=== PATIENT | male | born 1930 | race Caucasian/White ===

== ENCOUNTER 2016-06-26 23:19 | Emergency (ER) | payer OTHER, MEDICARE ==
[2016-06-26 23:23] VITALS: BP 197/83
[2016-06-26] MEDS ORDERED: Lidocaine 2% with EPINEPHrine 1:100,000 20 ML MDV INJECT ONE (23:33)
--- NOTE | 2016-06-27 00:03 | EDM.PDOC ---
ED HPI Skin/Rash - General Chief Complaint: Laceration Stated Complaint: laceration Time Seen by Provider: 06/26/16 23:33 Source: Reports: Patient History Limitations: Reports: No limitations - History of Present Illness INITIAL COMMENTS - FREE TEXT/NARRATIVE: Patient was at home using the bathroom and tripped over an area rug. He did not lose consciousness, but did hit his head on a corner in the bathroom. He has no complaints of headache, blurry vision, altered mental status, or unilateral weakness. Pressure was applied at home and is currently applied. No pain. Symptom Onset Date: 06/26/16 Symptom Onset Time: 23:25 Timing: Reports: still present Location, Skin: Reports: head (left frontal scalp) Severity: mild Known Identified Source: yes Place of Occurrence: home Sick Contact: no Associated Symptoms: Reports: no other symptoms Similar Symptoms Previously: no Recent Medical Care: no - Related Data Allergies Allergy/AdvReac Type Severity Reaction Status Date / Time No Known Allergies Allergy Verified 06/26/16 23:23 Home Meds: Ambulatory Orders Medication Instructions Recorded Confirmed Doxazosin [Cardura] 4 mg PO DAILY 06/26/16 06/26/16 Furosemide [Furosemide] 1 tab PO DAILY 06/26/16 06/26/16 amLODIPine Besylate [Amlodipine 1 tab PO DAILY 06/26/16 06/26/16 Besylate] cloNIDine HCl [Clonidine HCl] 1 tab PO ASDIRECTED 06/26/16 06/26/16 Past Medical History HEENT History: Reports: Hard of hearing, Impaired vision Cardiovascular History: Reports: Hypertension Oncologic (Cancer) History: Reports: Other (see below) Other Oncologic History: skin - Past Surgical History Musculoskeletal Surgical History: Reports: Knee replacement Social & Family History - Tobacco Use Smoking Status *Q: Former Smoker Used Tobacco, but Quit: Yes Month Tobacco Last Used: ? ED ROS GENERAL - Review of Systems Review Of Systems: ROS reveals no pertinent complaints other than HPI. ED EXAM, SKIN/RASH Exam: See Below Exam Limited By: No limitations General Appearance: alert, WD/WN, no apparent distress Eye Exam: bilateral eye: EOMI, PERRL Head: normocephalic, other (4 cm laceration left frontal scalp) Respiratory/Chest: no respiratory distress Cardiovascular: normal peripheral pulses Neurological: alert, oriented, CN II-XII intact, normal cognition, normal gait, normal reflexes, no motor/sensory deficits Skin: Wound/incision (4 cm linear laceration) Location, Skin: head Characteristics: linear ED SKIN PROCEDURES - Laceration/Wound Repair Left Anterior Medial Head Lac/wound length in cm: 4 Appearance: subcutaneous Distal NVT: neuro & vascular intact Anesthetic type: local Local anesthesia - Lidocaine (Xylocaine): 2% with epi Local anesthetic volume: 3cc Skin prep: chlorhexidine (hibiciens) Exploration/Debridement/Repair: wound explored, in a bloodless field, explored to base, no foreign material found Closed with: zuleika (12 zuleika) Drain placement: No Sterile dressing applied: nurse Tetanus status addressed: No Complications: No Course - Vital Signs Last Recorded V/S: Last Vital Signs Temp 37.3 C 06/26/16 23:19 Pulse 76 06/26/16 23:19 Resp 18 06/26/16 23:19 BP 197/83 H 06/26/16 23:19 Pulse Ox 95 06/26/16 23:19 Departure - Departure Time of Disposition: 00:11 Disposition: Home, Self-Care 01 Condition: good Clinical Impression: Laceration of head without foreign body Instructions: Laceration Care, Adult, [id number], Wound Infection, Easy-to- Read Forms: ED Department Discharge Additional Instructions: You may shower and clean your wound with soap and water. Do not submerge and soak your wound. Review your education for signs and symptoms of infection Have your zuleika removed in 7-10 days If you have any changes in your neurologic status like blurry vision, headache, one sided weakness, altered speech, come back to the emergency room ANA Please call us with any questions or concerns - Problem List & Annotations (1) Laceration of head without foreign body SNOMED Code(s): 007508388 Code(s): S01.91XA - LACERATION W/O FOREIGN BODY OF UNSP PART OF HEAD, INIT Status: Acute Current Visit: Yes Qualifiers: Encounter type: initial encounter Location of open wound of head: scalp Qualified Code(s): S01.01XA - Laceration without foreign body of scalp, initial encounter - Problem List Review Problem List Initiated/Reviewed/Updated: Yes - Assessment/Plan Assessment:: left sided scalp laceration Plan: You may shower and clean your wound with soap and water. Do not submerge and soak your wound. Review your education for signs and symptoms of infection Have your zuleika removed in 7-10 days If you have any changes in your neurologic status like blurry vision, headache, one sided weakness, altered speech, come back to the emergency room ANA Please call us with any questions or concerns
== END 2016-06-27 00:18 | disposition home or self-care (01) ==
LOC: VM.ED 23:19
DX: S01.01XA Laceration without foreign body of scalp, initial encounter (principal); I10 Essential (primary) hypertension; Z88.8 Allergy status to other drugs, medicaments and biological substances; Z87.891 Personal history of nicotine dependence; W22.8XXA Striking against or struck by other objects, initial encounter; Y92.002 Bathroom of unspecified non-institutional (private) residence as the place of occurrence of the external cause
CPT/HCPCS: 12002; 99282-GF-25; 99283

== ENCOUNTER 2018-06-19 12:07 | Inpatient (IN) | payer OTHER, MEDICARE ==
--- NOTE | 2018-06-19 12:17 | EDM.PDOC ---
ED HPI GENERAL MEDICAL PROBLEM - General Chief Complaint: General Stated Complaint: Syncope Time Seen by Provider: 06/19/18 12:07 Source of Information: Reports: Patient, EMS, EMS Notes Reviewed, RN History Limitations: Reports: No Limitations - History of Present Illness INITIAL COMMENTS - FREE TEXT/NARRATIVE: Patient comes in the emergency department by EMS for complaint of a syncopal episode. Patient was at home getting out of shower and needed to have a bowel movement. He became lightheaded and dizzy. His was nearby and came to his assistance and assisted him to the floor prior to him "passing out". She believes he was out for 1-2 minutes. First responders on scene got a blood pressure 83/56 and slowly increased 121/60 prior to arrival at ER. Patient did vomit one time and was given zofran Enroute. Pt denies any symptoms once arriving in the ER. Onset: Sudden Quality: Reports: Other Severity: Moderate Improves with: Reports: None Worsens with: Reports: None Associated Symptoms: Reports: No Other Symptoms - Related Data Allergies Allergy/AdvReac Type Severity Reaction Status Date / Time No Known Allergies Allergy Verified 06/19/18 12:41 Home Meds: Home Meds Doxazosin [Cardura] 8 mg PO DAILY 06/26/16 [History] Furosemide 1 tab PO DAILY 06/26/16 [History] amLODIPine Besylate [Amlodipine Besylate] 1 tab PO DAILY 06/26/16 [History] cloNIDine HCl [Clonidine HCl] 1 tab PO ASDIRECTED 06/26/16 [History] Carbidopa/Levodopa [Carbidopa-Levodopa 25-100 Tab] 1 each PO ASDIRECTED [History] Losartan/Hydrochlorothiazide [Losartan-HCTZ 100-12.5 MG] 1 each PO DAILY [History] Past Medical History HEENT History: Reports: Hard of Hearing, Impaired Vision Cardiovascular History: Reports: Hypertension Oncologic (Cancer) History: Reports: Other (See Below) Other Oncologic History: skin - Past Surgical History Musculoskeletal Surgical History: Reports: Knee Replacement ED ROS GENERAL - Review of Systems Review Of Systems: See Below Constitutional: Reports: No Symptoms HEENT: Reports: No Symptoms Respiratory: Reports: No Symptoms Cardiovascular: Reports: No Symptoms Endocrine: Reports: No Symptoms GI/Abdominal: Reports: No Symptoms : Reports: No Symptoms Musculoskeletal: Reports: No Symptoms Skin: Reports: No Symptoms Neurological: Reports: No Symptoms Psychiatric: Reports: No Symptoms Hematologic/Lymphatic: Reports: No Symptoms Immunologic: Reports: No Symptoms ED EXAM, GENERAL - Physical Exam Exam: See Below Exam Limited By: No Limitations General Appearance: Alert, WD/WN, No Apparent Distress Head: Atraumatic, Normocephalic Respiratory/Chest: No Respiratory Distress, Lungs Clear, Normal Breath Sounds, No Accessory Muscle Use, Chest Non-Tender Cardiovascular: Normal Peripheral Pulses, No Edema, No Murmur, Bradycardia Back Exam: Normal Inspection Extremities: Normal Inspection, Non-Tender, No Pedal Edema, Normal Capillary Refill Neurological: Alert Psychiatric: Normal Affect, Normal Mood Skin Exam: Warm, Dry, Intact Course - Vital Signs Last Recorded V/S: Last Vital Signs Temp 36.1 C 06/19/18 12:07 Pulse 44 L 06/19/18 12:07 Resp 15 06/19/18 12:07 BP 151/52 H 06/19/18 12:07 Pulse Ox 95 06/19/18 12:07 - Orders/Labs/Meds Orders: Active Orders 24 hr Category Date Time Status Cardiac Monitoring [RC] . DIRECTED Care 06/19/18 12:17 Inactive EKG Documentation Completion [RC] STAT Care 06/19/18 12:18 Active Sodium Chloride 0.9% [Normal Saline] 1,000 ml Med 06/19/18 13:31 Active IV ONETIME Sodium Chloride 0.9% [Saline Flush] Med 06/19/18 12:17 Active 10 ml FLUSH ASDIRECTED PRN Peripheral IV Insertion Adult [OM.PC] Stat Oth 06/19/18 12:17 Ordered Medication Orders Sodium Chloride (Normal Saline) 1,000 mls @ 1,000 mls/hr IV ONETIME ONE Stop: 06/19/18 14:30 Sodium Chloride (Saline Flush) 10 ml FLUSH ASDIRECTED PRN PRN Reason: Keep Vein Open Labs: Laboratory Tests 06/19/18 06/19/18 Range/Units 12:36 12:36 WBC 6.9 (4.0-10.0) x10^3/uL RBC 4.00 L (4.5-6.0) x10^6/uL Hgb 12.6 L (14.0-18.0) g/dL Hct 37.3 L (40.0-52.0) % MCV 93.3 H (78.0-93.0) fL MCH 31.5 (26.0-32.0) pg MCHC 33.8 (32.0-36.0) g/dL RDW Coeff of Aj 13.0 (10.0-15.0) % Plt Count 175 (130-400) x10^3/uL Neut % (Auto) 82.1 H (50.0-80.0) % Lymph % (Auto) 8.8 L (25.0-50.0) % [place] % (Auto) 6.4 (2.0-11.0) % Eos % (Auto) 2.6 (0.0-4.0) % Baso % (Auto) 0.1 L (0.2-1.2) % Sodium 136 (136-145) mmol/L Potassium 4.2 (3.5-5.1) mmol/L Chloride 99 (98-107) mmol/L Carbon Dioxide 30 (21-32) mmol/L Anion Gap 11.2 (10-20) mmol/L BUN 38 H (7-18) mg/dL Creatinine 1.9 H (0.70-1.30) mg/dL Est Cr Clr Drug Dosing TNP Estimated GFR (MDRD) 34 Glucose 106 (74-106) mg/dL Calcium 9.2 (8.5-10.1) mg/dL Corrected Calcium 9.76 (8.5-10.1) mg/dL Total Bilirubin 0.5 (0.2-1.0) mg/dL AST 13 L (15-37) U/L ALT 7 L (16-63) U/L Alkaline Phosphatase 58 (46-116) U/L Troponin I < 0.017 (<=0.056) ng/mL NT-Pro-B Natriuret Pep 380 (<=450) pg/mL Total Protein 6.4 (6.4-8.2) g/dL Albumin 3.3 L (3.4-5.0) g/dL Globulin 3.1 Albumin/Globulin Ratio 1.06 Meds: Medications Generic Name Dose Route Start Last Admin Trade Name Freq PRN Reason Stop Dose Admin Sodium Chloride 1,000 mls @ 1,000 mls/hr 06/19/18 13:31 Normal Saline IV 06/19/18 14:30 ONETIME ONE Sodium Chloride 10 ml 06/19/18 12:17 Saline Flush FLUSH ASDIRECTED PRN Keep Vein Open Departure - Departure Time of Disposition: 14:00 Disposition: Admitted As Inpatient 66 Clinical Impression: Bradycardia Syncope Qualifiers: Syncope type: vasovagal syncope Qualified Code(s): R55 - Syncope and collapse - Discharge Information Referrals: Javier Gates MD [Primary Care Provider] - Forms: ED Department Discharge - Problem List Review Problem List Initiated/Reviewed/Updated: Yes - My Orders Last 24 Hours: My Active Orders 06/19/18 12:17 Cardiac Monitoring [RC] . DIRECTED Sodium Chloride 0.9% [Saline Flush] 10 ml FLUSH ASDIRECTED PRN Peripheral IV Insertion Adult [OM.PC] Stat 06/19/18 12:18 EKG Documentation Completion [RC] STAT 06/19/18 13:31 Sodium Chloride 0.9% [Normal Saline] 1,000 ml IV ONETIME - Assessment/Plan Last 24 Hours: My Active Orders 06/19/18 12:17 Cardiac Monitoring [RC] . DIRECTED Sodium Chloride 0.9% [Saline Flush] 10 ml FLUSH ASDIRECTED PRN Peripheral IV Insertion Adult [OM.PC] Stat 06/19/18 12:18 EKG Documentation Completion [RC] STAT 06/19/18 13:31 Sodium Chloride 0.9% [Normal Saline] 1,000 ml IV ONETIME Assessment:: 1. Syncopal episode 2. bradycardia Plan: 1. Labs completed in ER. 2. EKG completed in ER. 3. Fluids given in ER. 4. Patients would not like to be transferred at this time for a consult regarding pacemaker placement. She would like medical management at this time only. 5. Contacted PCP [phone], [phone] called [facility]. PCP is not in clinic today. Did call employee relations director hospitalist Dr. Fields who is willing to admit the pt for further medical management. 6. During ER visit pt remained symptom free however his heart rate did remain 30s-40s. 7. All questions and concerns were addressed prior to admitting.
[2018-06-19 13:11] LABS: CHLORIDE,CL 99 mmol/L (98-107); SODIUM,NA 136 mmol/L (136-145)
[2018-06-19 13:23] LABS: ANION GAP 11.2 mmol/L (10-20)
[2018-06-19] MEDS ORDERED: Sodium Chloride 0.9% 1,000 ML IV ONE (13:31)
[2018-06-19] MEDS: Sodium Chloride 0.9% 10 ML Syringe FLUSH PRN (20:14)
[2018-06-19] MEDS: amLODIPine 5 MG Tab PO SCH (20:17)
[2018-06-19] MEDS: Multivitamins with Iron/Calcium/Folic Acid/Minerals Tab PO SCH (20:17)
[2018-06-19] MEDS: cloNIDine 0.1 MG Tab PO SCH (20:18)
[2018-06-19] MEDS: Carbidopa/Levodopa 50-200 MG Tab.ER PO SCH (20:18)
--- NOTE | 2018-06-19 21:41 | PCM.HP ---
H&P History of Present Illness - General Date of Service: 06/19/18 Admit Problem/Dx: Admission Diagnosis/Problem Admission Diagnosis/Problem Bradycardia with 31-40 beats per minute CC: Syncopal spell HPI: He has been on Sinemet for Parkinsons for about 2-1/2 years, also is on the following for hypertension: Norvasc 5 mg daily, clonidine 0.1 mg BID, Cardura 8 mg daily, losartan 100 mg daily, HCTZ 12.5 mg daily, Lasix 20 mg daily. At his last office visit in 01/18 his BP was down to 120/68 and there was mention of possibly stopping his Lasix and Norvasc in the future. He did fairly well on all of them however. He was brought to ER today having had a syncopal spell at home and family observed that he was unconscious for well over a minute. When the ambulance came to get him he was still hypotensive and bradycardic, that gradually improved in the ER and on admission to hospital. He has not had trouble with this before. He did not have any chest pain or dyspnea associated with it. Because he was still bradycardic in the ER, heart rate down in the 30s, ER physician considered T/F to [place] for consideration of a pacemaker but was not in favor of that, negotiated to have him admitted here for medical observation and treatment first. Indeed, his BP is back up to about 160, and his HR up to 70. 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 Lives [place] farm now with his who is considerably younger, a son lives very near and farms the home farm. He is DNR status. Systems Review: -Constitutional: Generally has been well except for his Parkinsons, sees Neurology regularly -Eyes: Good result from his bilateral cataract extraction -ENT: Has partial dentures, after wearing hearing aids for a while he now does better without them -Cardiac: Says he gets puffy legs when not on Lasix heard him breathing noisily before he went on Lasix; no Hx of coronary disease or heart attacks; he is on daily ASA but probably not effective since he takes Celebrex every day also -Pulmonary: Quit smoking in the early 80s, denies any DX of COPD, once was told he had asthma but it was probably from the excess fluid and it cleared -GI: No problems when he takes a stool softener; no plans for more colonoscopy in spite of Hx of adenomatous polyps -: Denies any urinary hesitancy, says he is not on Cardura for that -Neurologic: He sees Neurologist again next week for his Parkinsons. He does not have a tremor, not sure how he got the DX, JBA observed him to have signs of it -Musculoskeletal: Good result from total knee replacement, but his shoulder bothers him and he takes Celebrex regularly for that and it helps -Endocrine: Never any diabetes, hyperlipidemia, or thyroid disease -Heme: No Hx of anemia, bruises more easily as he has gotten older but no bleeding problems -Skin: Many skin cancers -Psych: Denies depression or other problems -Allergies: Has had seasonal allergies, used Flonase in the past but not much trouble the past few years Exam: -General: VS now OK, regular rhythm, he is alert and answers most questions OK, defers to his often -Eyes: Pupils equal -Mouth and throat: Partial dentures, no redness, hydration seems OK -Ears: Defect on R pinna from excision of previous cancer, some crusting, cant be sure that there is no recurrence -Neck: No masses or thyroid enlargement, does have bruit bilaterally, L > R, does not seem to be a transmitted murmur -Cardiac: Heart sounds mildly distant but are regular, systolic murmur is quite soft, does not seem likely to be transmitted to the carotids has a bruit -Pulmonary: Lung sounds are clear and normal -Abdomen: Soft, nontender, no organomegaly or masses. No hernia by Hx -: Not done -Extremities: Skin of lower legs is thin and shiny and parchment-like but intact ; unable to feel pulses in his feet; no edema of lower legs; atrophy of interossei muscles of hands -Neurologic: Has diminished facial movement and monotone voice consistent with some Parkinsons; no tremor; memory seems fairly good -Psych: Seems in good spirits, affect normal Impression: -Prolonged syncope related to bradycardia and hypotension, now improved -This might be solely from his Parkinsons disease and autonomic instability -Antihypertensives might be playing a part also, especially Cardura Plan: -Admitted to acute care, will need PT and gradual resumption of ambulation to prevent further severe syncope -Hold Lasix and decrease Cardura from 8 down to 4 mg daily -Discussed possibility of pacemaker in the future if needed, does not seem to be indicated now -DNR status - Related Data Allergies/Adverse Reactions: Allergies Allergy/AdvReac Type Severity Reaction Status Date / Time SHAQ Inhibitors AdvReac Nausea and Verified 06/19/18 16:10 Vomiting Home Medications: Home Meds Doxazosin [Cardura] 8 mg PO DAILY 06/26/16 [History] Furosemide 1 tab PO DAILY 06/26/16 [History] amLODIPine Besylate [Amlodipine Besylate] 1 tab PO BEDTIME 06/26/16 [History] cloNIDine HCl [Clonidine HCl] 1 tab PO BID 06/26/16 [History] Aspirin [Halfprin] 1 tab PO DAILY 06/19/18 [History] Calcium Carbonate/Vitamin D3 [Calcium 600 + Vit D 200] 1 each PO DAILY 06/19/18 [History] Carbidopa/Levodopa [Carbidopa-Levodopa 25-100 Tab] 1 tab PO TID 06/19/18 [ History] Carbidopa/Levodopa [Sinemet Cr 50-200 Tablet] 1 tab PO BEDTIME 06/19/18 [History ] Celecoxib [CeleBREX] 100 mg PO DAILY 06/19/18 [History] Docusate Sodium [Colace] 100 mg PO DAILY 06/19/18 [History] Fish Oil/[place]-3 Fatty Acids [Fish Oil 1,000 MG] 1 cap PO DAILY 06/19/18 [ History] Losartan/Hydrochlorothiazide [Losartan-HCTZ 100-12.5 MG] 1 each PO DAILY [History] Multivitamin [Multi-Day Vitamins] 1 each PO BEDTIME 06/19/18 [History] Past Medical History HEENT History: Reports: Hard of Hearing, Impaired Vision Cardiovascular History: Reports: Hypertension Oncologic (Cancer) History: Reports: Other (See Below) Other Oncologic History: skin - Past Surgical History Musculoskeletal Surgical History: Reports: Knee Replacement Social & Family History - Family History Family Medical History: Noncontributory - Tobacco Use Smoking Status *Q: Never Smoker Second Hand Smoke Exposure: No - Caffeine Use Caffeine Use: Reports: Coffee - Recreational Drug Use Recreational Drug Use: No H&P Review of Systems - Review of Systems: Review Of Systems: See Below Exam - Exam Exam: See Below - Vital Signs Vital Signs: Last Vital Signs Temp 37.0 C 06/19/18 17:01 Pulse 68 06/19/18 17:01 Resp 18 06/19/18 17:01 BP 157/52 H 06/19/18 20:18 Pulse Ox 92 L 06/19/18 17:01 Weight: 69.218 kg - Patient Data Lab Results Last 24 hrs: Laboratory Results - last 24 hr 06/19/18 06/19/18 Range/Units 12:36 12:36 WBC 6.9 (4.0-10.0) x10^3/uL RBC 4.00 L (4.5-6.0) x10^6/uL Hgb 12.6 L (14.0-18.0) g/dL Hct 37.3 L (40.0-52.0) % MCV 93.3 H (78.0-93.0) fL MCH 31.5 (26.0-32.0) pg MCHC 33.8 (32.0-36.0) g/dL RDW Coeff of Aj 13.0 (10.0-15.0) % Plt Count 175 (130-400) x10^3/uL Neut % (Auto) 82.1 H (50.0-80.0) % Lymph % (Auto) 8.8 L (25.0-50.0) % [place] % (Auto) 6.4 (2.0-11.0) % Eos % (Auto) 2.6 (0.0-4.0) % Baso % (Auto) 0.1 L (0.2-1.2) % Sodium 136 (136-145) mmol/L Potassium 4.2 (3.5-5.1) mmol/L Chloride 99 (98-107) mmol/L Carbon Dioxide 30 (21-32) mmol/L Anion Gap 11.2 (10-20) mmol/L BUN 38 H (7-18) mg/dL Creatinine 1.9 H (0.70-1.30) mg/dL Est Cr Clr Drug Dosing TNP Estimated GFR (MDRD) 34 Glucose 106 (74-106) mg/dL Calcium 9.2 (8.5-10.1) mg/dL Corrected Calcium 9.76 (8.5-10.1) mg/dL Total Bilirubin 0.5 (0.2-1.0) mg/dL AST 13 L (15-37) U/L ALT 7 L (16-63) U/L Alkaline Phosphatase 58 (46-116) U/L Troponin I < 0.017 (<=0.056) ng/mL NT-Pro-B Natriuret Pep 380 (<=450) pg/mL Total Protein 6.4 (6.4-8.2) g/dL Albumin 3.3 L (3.4-5.0) g/dL Globulin 3.1 Albumin/Globulin Ratio 1.06 Result Diagrams: 06/19/18 12:36 06/19/18 12:36 Problem List Initiated/Reviewed/Updated: Yes Orders Last 24hrs: Active Orders 24 hr Category Date Time Status Admission Status [Patient Status] [ADT] Routine ADT 06/19/18 13:58 Active Patient Status [ADT] Routine ADT 06/19/18 17:47 Active Cardiac Monitoring [RC] . DIRECTED Care 06/19/18 12:17 Inactive Communication Order [RC] ROUTINE Care 06/19/18 18:00 Active Oxygen Therapy [RC] .PRN Care 06/19/18 17:47 Active Telemetry Monitoring [Cardiac Monitoring] [RC] 06,10,14 Care 06/19/18 16:21 Active ,18,22,02 VTE/DVT Education [RC] PER UNIT ROUTINE Care 06/19/18 17:47 Active Vital Signs [RC] 06,10,14,18,22,02 Care 06/19/18 17:47 Active Consult to Case Management/Medical Receptionist [place] [CONS] Cons 06/19/18 16:05 Active Routine OT Evaluation and Treatment [CONS] Routine Cons 06/19/18 16:05 Active PT Evaluation and Treatment [CONS] Routine Cons 06/19/18 16:05 Active Regular Diet [DIET] Diet 06/19/18 Dinner Active Aspirin [Halfprin] Med 06/20/18 08:00 Active 81 mg PO DAILY Calcium Carbonate/Vitamin D3 [Calcium Carbonate/Vitamin Med 06/20/18 08:00 Active D 1250 MG-200 Unit] 1 tab PO DAILY Carbidopa/Levodopa [Sinemet 25-100 mg] Med 06/20/18 08:00 Active 1 tab PO TID@0800,1200,1600 Carbidopa/Levodopa [Sinemet Cr 50-200 mg] Med 06/19/18 20:00 Active 1 tab PO BEDTIME Celecoxib [CeleBREX] Med 06/20/18 08:00 Active 100 mg PO DAILY Docusate Sodium [Colace] Med 06/20/18 08:00 Active 100 mg PO DAILY Doxazosin [Cardura] Med 06/20/18 08:00 Active 4 mg PO DAILY Losartan [Cozaar] Med 06/20/18 08:00 Active 100 mg PO DAILY Multivitamins w-Iron/Ca/FA/Min [Thera M Plus] Med 06/19/18 20:00 Active 1 tab PO BEDTIME Sodium Chloride 0.9% [Saline Flush] Med 06/19/18 12:17 Active 10 ml FLUSH ASDIRECTED PRN amLODIPine [Norvasc] Med 06/19/18 20:00 Active 5 mg PO BEDTIME cloNIDine [Catapres] Med 06/19/18 20:00 Active 0.1 mg PO BID hydroCHLOROthiazide Med 06/20/18 08:00 Active 12.5 mg PO DAILY Peripheral IV Insertion Adult [OM.PC] Stat Oth 06/19/18 12:17 Ordered Code Status [Resuscitation Status] Routine Resus Stat 06/19/18 15:53 Ordered Medication Orders Amlodipine Besylate (Norvasc) 5 mg PO BEDTIME GEOVANNY Last Admin: 06/19/18 20:17 Dose: 5 mg Aspirin (Halfprin) 81 mg PO DAILY GEOVANNY Calcium Carbonate (Calcium Carbonate/Vitamin D 1250 Mg-200 Unit) 1 tab PO DAILY GEOVANNY Carbidopa/Levodopa (Sinemet 25-100 Mg) 1 tab PO TID@0800,1200,1600 GEOVANNY Carbidopa/Levodopa (Sinemet Cr 50-200 Mg) 1 tab PO BEDTIME GEOVANNY Last Admin: 06/19/18 20:18 Dose: 1 tab Celecoxib (Celebrex) 100 mg PO DAILY GEOVANNY Clonidine HCl (Catapres) 0.1 mg PO BID [facility] Last Admin: 06/19/18 20:18 Dose: 0.1 mg Docusate Sodium (Colace) 100 mg PO DAILY GEOVANNY Doxazosin Mesylate (Cardura) 4 mg PO DAILY [facility] Hydrochlorothiazide (Hydrochlorothiazide) 12.5 mg PO DAILY [facility] Losartan Potassium (Cozaar) 100 mg PO DAILY [facility] Multivitamins/Minerals (Thera M Plus) 1 tab PO BEDTIME [facility] Last Admin: 06/19/18 20:17 Dose: 1 tab Sodium Chloride (Saline Flush) 10 ml FLUSH ASDIRECTED PRN PRN Reason: Keep Vein Open Last Admin: 06/19/18 20:14 Dose: 10 ml
[2018-06-20] MEDS ORDERED: Doxazosin 4 MG Tab PO SCH (08:00)
[2018-06-20] MEDS: Hydrochlorothiazide 12.5 MG Cap PO SCH (08:43)
[2018-06-20] MEDS: Losartan 50 MG Tab PO SCH (08:43)
[2018-06-20] MEDS: Calcium Carbonate/Vitamin D3 1250 MG-200 Unit Tab PO SCH (08:43)
[2018-06-20] MEDS: cloNIDine 0.1 MG Tab PO SCH ×2 (08:43→19:46)
[2018-06-20] MEDS: Celecoxib 100 MG Cap PO SCH (08:43)
[2018-06-20] MEDS: Aspirin 81 MG Tab.EC PO SCH (08:43)
[2018-06-20] MEDS: Docusate Sodium 100 MG Cap PO SCH (08:44)
[2018-06-20] MEDS: Carbidopa/Levodopa 25-100 MG Tab PO SCH ×3 (08:44→16:32)
--- NOTE | 2018-06-20 11:28 | PCM.PN ---
- General Info Date of Service: 06/20/18 Admission Dx/Problem (Free Text): History: Admitted yesterday with a rather prolonged incident of syncope, was bradycardic and hypotensive. Since admission, his lowest heart rate has been in the low 40s , during the night when he is sleeping. It goes up when he is awake. He has had BP as high as 155, but today when he is sitting it is 96/61. He did remove his telemetry and got up to go to the bathroom by himself and fortunately did not have any syncope. He denies any problems. As noted yesterday, his antihypertensives and his Parkinsons with autonomic instability could both be problems causing hypotension. Yesterday I decreased his Cardura from 8 mg down to 4 mg daily and held Lasix. Exam: -Sitting his BP is 96/61, drops to 91/60 on standing and he was mildly unsteady -Heart sounds distant but normal and regular -Lungs clear -Seems to answer questions appropriately Impression: -Autonomic instability with orthostatism, will probably need to let his BP run moderately high in order to avoid further syncope -Family, especially , dont want to consider pacemaker unless absolutely necessary, and is not indicated presently Plan: -D/C Cardura completely -Starting 06/22/18 might need to involve PT and possibly swing bed then - Patient Data Vitals - Most Recent: Last Vital Signs Temp 36.6 C 06/20/18 05:13 Pulse 56 L 06/20/18 05:13 Resp 18 06/20/18 05:13 BP 151/54 H 06/20/18 08:44 Pulse Ox 93 L 06/20/18 05:13 Orthostatic Blood Pressure [ 91/55 Standing] Orthostatic Blood Pressure [ 96/40 Sitting] Weight - Most Recent: 69.989 kg I&O - Last 24 Hours: Intake & Output 06/19/18 06/20/18 06/20/18 22:59 06:59 14:59 Intake Total 200 Output Total 300 850 Balance -300 -650 Lab Results Last 24 Hours: Laboratory Results - last 24 hr 06/19/18 06/19/18 Range/Units 12:36 12:36 WBC 6.9 (4.0-10.0) x10^3/uL RBC 4.00 L (4.5-6.0) x10^6/uL Hgb 12.6 L (14.0-18.0) g/dL Hct 37.3 L (40.0-52.0) % MCV 93.3 H (78.0-93.0) fL MCH 31.5 (26.0-32.0) pg MCHC 33.8 (32.0-36.0) g/dL RDW Coeff of Aj 13.0 (10.0-15.0) % Plt Count 175 (130-400) x10^3/uL Neut % (Auto) 82.1 H (50.0-80.0) % Lymph % (Auto) 8.8 L (25.0-50.0) % Ro[place] % (Auto) 6.4 (2.0-11.0) % Eos % (Auto) 2.6 (0.0-4.0) % Baso % (Auto) 0.1 L (0.2-1.2) % Sodium 136 (136-145) mmol/L Potassium 4.2 (3.5-5.1) mmol/L Chloride 99 (98-107) mmol/L Carbon Dioxide 30 (21-32) mmol/L Anion Gap 11.2 (10-20) mmol/L BUN 38 H (7-18) mg/dL Creatinine 1.9 H (0.70-1.30) mg/dL Est Cr Clr Drug Dosing TNP Estimated GFR (MDRD) 34 Glucose 106 (74-106) mg/dL Calcium 9.2 (8.5-10.1) mg/dL Corrected Calcium 9.76 (8.5-10.1) mg/dL Total Bilirubin 0.5 (0.2-1.0) mg/dL AST 13 L (15-37) U/L ALT 7 L (16-63) U/L Alkaline Phosphatase 58 (46-116) U/L Troponin I < 0.017 (<=0.056) ng/mL NT-Pro-B Natriuret Pep 380 (<=450) pg/mL Total Protein 6.4 (6.4-8.2) g/dL Albumin 3.3 L (3.4-5.0) g/dL Globulin 3.1 Albumin/Globulin Ratio 1.06 Med Orders - Current: Current Medications Amlodipine Besylate (Norvasc) 5 mg PO BEDTIME [facility] Last Admin: 06/19/18 20:17 Dose: 5 mg Aspirin (Halfprin) 81 mg PO DAILY [facility] Last Admin: 06/20/18 08:43 Dose: 81 mg Calcium Carbonate (Calcium Carbonate/Vitamin D 1250 Mg-200 Unit) 1 tab PO DAILY [facility] Last Admin: 06/20/18 08:43 Dose: 1 tab Carbidopa/Levodopa (Sinemet 25-100 Mg) 1 tab PO TID@0800,1200,1600 [facility] Last Admin: 06/20/18 08:44 Dose: 1 tab Carbidopa/Levodopa (Sinemet Cr 50-200 Mg) 1 tab PO BEDTIME [facility] Last Admin: 06/19/18 20:18 Dose: 1 tab Celecoxib (Celebrex) 100 mg PO DAILY [facility] Last Admin: 06/20/18 08:43 Dose: 100 mg Clonidine HCl (Catapres) 0.1 mg PO BID [facility] Last Admin: 06/20/18 08:43 Dose: 0.1 mg Docusate Sodium (Colace) 100 mg PO DAILY [facility] Last Admin: 06/20/18 08:44 Dose: 100 mg Hydrochlorothiazide (Hydrochlorothiazide) 12.5 mg PO DAILY [facility] Last Admin: 06/20/18 08:43 Dose: 12.5 mg Losartan Potassium (Cozaar) 100 mg PO DAILY [facility] Last Admin: 06/20/18 08:43 Dose: 100 mg Multivitamins/Minerals (Thera M Plus) 1 tab PO BEDTIME [facility] Last Admin: 06/19/18 20:17 Dose: 1 tab Sodium Chloride (Saline Flush) 10 ml FLUSH ASDIRECTED PRN PRN Reason: Keep Vein Open Last Admin: 06/19/18 20:14 Dose: 10 ml Discontinued Medications Doxazosin Mesylate (Cardura) 4 mg PO DAILY [facility] Last Admin: 06/20/18 08:44 Dose: 4 mg Sodium Chloride (Normal Saline) 1,000 mls @ 1,000 mls/hr IV ONETIME ONE Stop: 06/19/18 14:30 Last Admin: 06/19/18 13:50 Dose: 1,000 mls/hr - Problem List Review Problem List Initiated/Reviewed/Updated: Yes - My Orders Last 24 Hours: My Active Orders 06/19/18 15:53 Code Status [Resuscitation Status] Routine 06/19/18 16:05 Consult to Case Management/Repairer Helper [CONS] Routine OT Evaluation and Treatment [CONS] Routine PT Evaluation and Treatment [CONS] Routine 06/19/18 16:21 Telemetry Monitoring [Cardiac Monitoring] [RC] ,,,,,02 06/19/18 17:47 Patient Status [ADT] Routine Oxygen Therapy [RC] .PRN VTE/DVT Education [RC] PER UNIT ROUTINE Vital Signs [RC] ,,,,,06/19/18 18:00 Communication Order [RC] ROUTINE 06/19/18 20:00 Carbidopa/Levodopa [Sinemet Cr 50-200 mg] 1 tab PO BEDTIME Multivitamins w-Iron/Ca/FA/Min [Thera M Plus] 1 tab PO BEDTIME amLODIPine [Norvasc] 5 mg PO BEDTIME cloNIDine [Catapres] 0.1 mg PO BID 06/19/18 Dinner Regular Diet [DIET] 06/20/18 08:00 Aspirin [Halfprin] 81 mg PO DAILY Calcium Carbonate/Vitamin D3 [Calcium Carbonate/Vitamin D 1250 MG-200 Unit] 1 tab PO DAILY Carbidopa/Levodopa [Sinemet 25-100 mg] 1 tab PO TID@0800,1200,1600 Celecoxib [CeleBREX] 100 mg PO DAILY Docusate Sodium [Colace] 100 mg PO DAILY Losartan [Cozaar] 100 mg PO DAILY hydroCHLOROthiazide 12.5 mg PO DAILY
[2018-06-20] MEDS: amLODIPine 5 MG Tab PO SCH (19:48)
[2018-06-20] MEDS: Multivitamins with Iron/Calcium/Folic Acid/Minerals Tab PO SCH (19:48)
[2018-06-20] MEDS: Carbidopa/Levodopa 50-200 MG Tab.ER PO SCH (19:49)
[2018-06-20] MEDS: Sodium Chloride 0.9% 10 ML Syringe FLUSH PRN (19:49)
[2018-06-21] MEDS: cloNIDine 0.1 MG Tab PO SCH ×2 (08:23→20:12)
[2018-06-21] MEDS: Carbidopa/Levodopa 25-100 MG Tab PO SCH ×3 (08:23→16:12)
[2018-06-21] MEDS: Hydrochlorothiazide 12.5 MG Cap PO SCH (08:24)
[2018-06-21] MEDS: Calcium Carbonate/Vitamin D3 1250 MG-200 Unit Tab PO SCH (08:24)
[2018-06-21] MEDS: Losartan 50 MG Tab PO SCH (08:24)
[2018-06-21] MEDS: Celecoxib 100 MG Cap PO SCH (08:24)
[2018-06-21] MEDS: Aspirin 81 MG Tab.EC PO SCH (08:25)
[2018-06-21] MEDS: Docusate Sodium 100 MG Cap PO SCH (08:25)
--- NOTE | 2018-06-21 11:56 | PCM.PN ---
- General Info Date of Service: 06/21/18 Admission Dx/Problem (Free Text): History: His telemetry seems to demonstrate that bradycardia is not his problem, continues to have heart rate mostly from 50-70. He has not had actual syncope but certainly walks slow and needs help to get out of the chair. His clinic med list shows that the regular Sinemet had been DCd and he was only on a long- acting at bedtime, but his family say that he was indeed getting both Sinemet CR 50/200 at bedtime and Sinemet 25/100, 2 TID. He offers no complaints today, is napping in his chair. Exam: -Heart sounds very distant consistent with some COPD -Lungs clear -Needs help to get out of a chair and then walks with a quad cane -BP with manual cuff, gauge was unreliable for actual amount, but about 150/70 lying and dropped to 120 on sitting Impression -Syncope, orthostatism almost certainly from both his Parkinsons and his medication; 30 point drop from lying to sitting -[place] have already been DCd Plan: -Decrease losartan from 100 down to 50 mg daily -Anticipate D/C tomorrow - Patient Data Vitals - Most Recent: Last Vital Signs Temp 36.6 C 06/21/18 06:00 Pulse 52 L 06/21/18 06:00 Resp 14 06/21/18 06:00 BP 150/53 H 06/21/18 08:24 Pulse Ox 93 L 06/21/18 06:00 Orthostatic Blood Pressure [ 91/55 Standing] Orthostatic Blood Pressure [ 96/40 Sitting] Weight - Most Recent: 69.989 kg I&O - Last 24 Hours: Intake & Output 06/20/18 06/21/18 06/21/18 22:59 06:59 14:59 Intake Total 880 Output Total 250 Balance 630 Med Orders - Current: Current Medications Amlodipine Besylate (Norvasc) 5 mg PO BEDTIME [facility] Last Admin: 06/20/18 19:48 Dose: 5 mg Aspirin (Halfprin) 81 mg PO DAILY [facility] Last Admin: 06/21/18 08:25 Dose: 81 mg Calcium Carbonate (Calcium Carbonate/Vitamin D 1250 Mg-200 Unit) 1 tab PO DAILY [facility] Last Admin: 06/21/18 08:24 Dose: 1 tab Carbidopa/Levodopa (Sinemet Cr 50-200 Mg) 1 tab PO BEDTIME [facility] Last Admin: 06/20/18 19:49 Dose: 1 tab Carbidopa/Levodopa (Sinemet 25-100 Mg) 2 tab PO TID@0800,1200,1600 [facility] Last Admin: 06/21/18 08:23 Dose: 2 tab Celecoxib (Celebrex) 100 mg PO DAILY [facility] Last Admin: 06/21/18 08:24 Dose: 100 mg Clonidine HCl (Catapres) 0.1 mg PO BID [facility] Last Admin: 06/21/18 08:23 Dose: 0.1 mg Docusate Sodium (Colace) 100 mg PO DAILY [facility] Last Admin: 06/21/18 08:25 Dose: 100 mg Hydrochlorothiazide (Hydrochlorothiazide) 12.5 mg PO DAILY [facility] Last Admin: 06/21/18 08:24 Dose: 12.5 mg Losartan Potassium (Cozaar) 50 mg PO DAILY [facility] Multivitamins/Minerals (Thera M Plus) 1 tab PO BEDTIME [facility] Last Admin: 06/20/18 19:48 Dose: 1 tab Sodium Chloride (Saline Flush) 10 ml FLUSH ASDIRECTED PRN PRN Reason: Keep Vein Open Last Admin: 06/20/18 19:49 Dose: 10 ml Discontinued Medications Carbidopa/Levodopa (Sinemet 25-100 Mg) 1 tab PO TID@0800,1200,1600 [facility] Last Admin: 06/20/18 16:32 Dose: 1 tab Doxazosin Mesylate (Cardura) 4 mg PO DAILY [facility] Last Admin: 06/20/18 08:44 Dose: 4 mg Sodium Chloride (Normal Saline) 1,000 mls @ 1,000 mls/hr IV ONETIME ONE Stop: 06/19/18 14:30 Last Admin: 06/19/18 13:50 Dose: 1,000 mls/hr Losartan Potassium (Cozaar) 100 mg PO DAILY [facility] Last Admin: 06/21/18 08:24 Dose: 100 mg - Problem List Review Problem List Initiated/Reviewed/Updated: Yes - My Orders Last 24 Hours: My Active Orders 06/21/18 08:00 Carbidopa/Levodopa [Sinemet 25-100 mg] 2 tab PO TID@0800,1200,1600 06/22/18 08:00 Losartan [Cozaar] 50 mg PO DAILY
[2018-06-21] MEDS: amLODIPine 5 MG Tab PO SCH (20:11)
[2018-06-21] MEDS: Multivitamins with Iron/Calcium/Folic Acid/Minerals Tab PO SCH (20:11)
[2018-06-21] MEDS: Carbidopa/Levodopa 50-200 MG Tab.ER PO SCH (20:11)
[2018-06-21] MEDS: Sodium Chloride 0.9% 10 ML Syringe FLUSH PRN (20:15)
[2018-06-22] MEDS ORDERED: Losartan 50 MG Tab PO SCH (08:00)
[2018-06-22] MEDS: Hydrochlorothiazide 12.5 MG Cap PO SCH (09:57)
[2018-06-22] MEDS: Docusate Sodium 100 MG Cap PO SCH (09:57)
[2018-06-22] MEDS: Celecoxib 100 MG Cap PO SCH (09:58)
[2018-06-22] MEDS: Calcium Carbonate/Vitamin D3 1250 MG-200 Unit Tab PO SCH (09:58)
[2018-06-22] MEDS: Aspirin 81 MG Tab.EC PO SCH (09:58)
[2018-06-22] MEDS: Carbidopa/Levodopa 25-100 MG Tab PO SCH ×2 (09:58→12:42)
[2018-06-22] MEDS ORDERED: cloNIDine 0.1 MG Tab PO SCH (10:00)
--- NOTE | 2018-06-22 12:37 | PCM.DCSUM1 ---
Discharge Summary - Hospital Course Free Text/Narrative:: Discharge Diagnoses: -Syncope secondary to orthostatic hypotension -Mild bradycardia -Parkinsons disease with autonomic instability -Hypertension, some overtreatment Secondary Diagnoses: -Chronic kidney disease stage 3 -Hx multiple skin cancers Reason for Admission: Prolonged syncope at home, 1-2 minutes, ambulance found him bradycardic at 44 with and hypotensive with BP of 86. Brought to ER, discussion with family about referring him to [place] to consider a pacemaker, they preferred admission and management locally. Initial findings: -Lungs clear -Heart sounds distant but normal -Bradycardia in the low 40s -Alert and answers questions slowly but appropriately -Voice and facial muscles are somewhat typical of Parkinsons but he has no tremor Treatment and Course in Hospital: He was kept on telemetry throughout and his heart rate was usually 60-70 except overnight, especially in the cork grinder when it was 41-45. His antihypertensives were decreased from the beginning, at first Cardura was decreased from 8 down to 4 mg, then D/Cd. Lasix was DCd. On second hospital day his losartan was decreased from 100 down to 50 mg, and he is on HCTZ separately 25 mg daily, that is continued. On D/C his clonidine 0.1 mg is decreased from BID down to daily, in the morning. I felt we should not stop this abruptly because of rebound. On the day prior to discharge he still had a 30 mm drop in BP going from lying to sitting. He did have no further syncopal attacks and was able to walk by himself with a walker, sometimes needs a little help getting out of a chair. Condition on discharge: -Alert and answers questions appropriately -Heart sounds distant but regular and normal, 60/min -Lungs clear -No ankle edema Discharge Plan: -Advised him and that his orthostatism is probably mostly from Parkinsons and he is likely to have further syncopal spells -Advised it is not likely that HR of 40 would cause syncope and therefore do not need to consider pacemaker presently -He will be as careful as possible getting out of bed -Discussed the medications that have been stopped, should see his primary physician, [id number] in 1 week to decide on further changes Diagnosis: Stroke: No - Discharge Data Discharge Date: 06/22/18 Discharge Disposition: Home, Self-Care 01 Condition: Good - Patient Summary/Data Consults: Consultations 06/19/18 16:05 Consult to Case Management/Group Work Program Aide [CONS] Routine OT Evaluation and Treatment [CONS] Routine PT Evaluation and Treatment [CONS] Routine - Discharge Plan *PRESCRIPTION DRUG MONITORING PROGRAM REVIEWED*: No *COPY OF PRESCRIPTION DRUG MONITORING REPORT IN PATIENT RIYA: No Prescriptions/Med Rec: cloNIDine [Catapres] 0.1 mg PO DAILY #30 tablet Losartan [Cozaar] 50 mg PO DAILY #30 tablet Home Medications: Home Meds amLODIPine Besylate [Amlodipine Besylate] 1 tab PO BEDTIME 06/26/16 [History] Aspirin [Halfprin] 1 tab PO DAILY 06/19/18 [History] Calcium Carbonate/Vitamin D3 [Calcium 600 + Vit D 200] 1 each PO DAILY 06/19/18 [History] Carbidopa/Levodopa [Carbidopa-Levodopa 25-100 Tab] 1 tab PO TID 06/19/18 [ History] Carbidopa/Levodopa [Sinemet CR 50-200] 1 tab PO BEDTIME 06/19/18 [History] Celecoxib [CeleBREX] 100 mg PO DAILY 06/19/18 [History] Docusate Sodium [Colace] 100 mg PO DAILY 06/19/18 [History] Fish Oil/[place]-3 Fatty Acids [Fish Oil 1,000 MG] 1 cap PO DAILY 06/19/18 [ History] Multivitamin [Multi-Day Vitamins] 1 each PO BEDTIME 06/19/18 [History] Losartan [Cozaar] 50 mg PO DAILY #30 tablet 06/22/18 [Rx] cloNIDine [Catapres] 0.1 mg PO DAILY #30 tablet 06/22/18 [Rx] hydroCHLOROthiazide [Hydrochlorothiazide] 12.5 mg PO DAILY cap 06/22/18 [Rx] Forms: ED Department Discharge Referrals: Javier Gates MD [Primary Care Provider] - 06/30/18 10:30 am (You have a follow up appt. with Dr. Riki Gates on June 30, 2018 at 10:30----[facility]) - Discharge Summary/Plan Comment DC Time >30 min.: No - Patient Data Vitals - Most Recent: Last Vital Signs Temp 36.1 C 06/22/18 06:00 Pulse 50 L 06/22/18 06:00 Resp 18 06/22/18 06:00 BP 139/70 06/22/18 10:12 Pulse Ox 92 L 06/22/18 06:00 Orthostatic Blood Pressure [ 91/55 Standing] Orthostatic Blood Pressure [ 96/40 Sitting] Weight - Most Recent: 71.622 kg I&O - Last 24 hours: Intake & Output 06/21/18 06/22/18 06/22/18 22:59 06:59 14:59 Intake Total 860 480 360 Output Total 510 950 Balance 350 -470 360 Med Orders - Current: Current Medications Amlodipine Besylate (Norvasc) 5 mg PO BEDTIME [facility] Last Admin: 06/21/18 20:11 Dose: 5 mg Aspirin (Halfprin) 81 mg PO DAILY [facility] Last Admin: 06/22/18 09:58 Dose: 81 mg Calcium Carbonate (Calcium Carbonate/Vitamin D 1250 Mg-200 Unit) 1 tab PO DAILY [facility] Last Admin: 06/22/18 09:58 Dose: 1 tab Carbidopa/Levodopa (Sinemet Cr 50-200 Mg) 1 tab PO BEDTIME [facility] Last Admin: 06/21/18 20:11 Dose: 1 tab Carbidopa/Levodopa (Sinemet 25-100 Mg) 2 tab PO TID@0800,1200,1600 [facility] Last Admin: 06/22/18 09:58 Dose: 2 tab Celecoxib (Celebrex) 100 mg PO DAILY [facility] Last Admin: 06/22/18 09:58 Dose: 100 mg Clonidine HCl (Catapres) 0.1 mg PO DAILY [facility] Last Admin: 06/22/18 10:12 Dose: 0.1 mg Docusate Sodium (Colace) 100 mg PO DAILY [facility] Last Admin: 06/22/18 09:57 Dose: 100 mg Hydrochlorothiazide (Hydrochlorothiazide) 12.5 mg PO DAILY [facility] Last Admin: 06/22/18 09:57 Dose: 12.5 mg Losartan Potassium (Cozaar) 50 mg PO DAILY [facility] Last Admin: 06/22/18 09:57 Dose: 50 mg Multivitamins/Minerals (Thera M Plus) 1 tab PO BEDTIME [facility] Last Admin: 06/21/18 20:11 Dose: 1 tab Sodium Chloride (Saline Flush) 10 ml FLUSH ASDIRECTED PRN PRN Reason: Keep Vein Open Last Admin: 06/21/18 20:15 Dose: 10 ml Discontinued Medications Carbidopa/Levodopa (Sinemet 25-100 Mg) 1 tab PO TID@0800,1200,1600 [facility] Last Admin: 06/20/18 16:32 Dose: 1 tab Clonidine HCl (Catapres) 0.1 mg PO BID [facility] Last Admin: 06/21/18 20:12 Dose: 0.1 mg Doxazosin Mesylate (Cardura) 4 mg PO DAILY [facility] Last Admin: 06/20/18 08:44 Dose: 4 mg Sodium Chloride (Normal Saline) 1,000 mls @ 1,000 mls/hr IV ONETIME ONE Stop: 06/19/18 14:30 Last Admin: 06/19/18 13:50 Dose: 1,000 mls/hr Losartan Potassium (Cozaar) 100 mg PO DAILY [facility] Last Admin: 06/21/18 08:24 Dose: 100 mg
== END 2018-06-22 13:15 | disposition home or self-care (01) | DRG 312 ==
LOC: VM.ED 12:07 → VM.MS 14:30
PROVIDERS: ADMIT Family Medicine; ATTEND Family Medicine
DX: I95.1 Orthostatic hypotension (principal); R00.1 Bradycardia, unspecified; G20 Parkinson's disease; Z66 Do not resuscitate; I12.9 Hypertensive chronic kidney disease with stage 1 through stage 4 chronic kidney disease, or unspecified chronic kidney disease; N18.3 Chronic kidney disease, stage 3 (moderate); H91.90 Unspecified hearing loss, unspecified ear; H54.7 Unspecified visual loss; Z96.653 Presence of artificial knee joint, bilateral; Z85.828 Personal history of other malignant neoplasm of skin; Z79.82 Long term (current) use of aspirin; Z79.899 Other long term (current) drug therapy; Z98.42 Cataract extraction status, left eye; Z98.41 Cataract extraction status, right eye; Z87.891 Personal history of nicotine dependence; Z86.010 Personal history of colon polyps
CPT/HCPCS: 36415; 80053; 83880; 84484; 85025; 93005; 96360; 97162-GP; 99285-25; A9270-GY; J7030